=== PATIENT | female | born 1955 | race Caucasian/White ===

== ENCOUNTER → 2018-02-19 | Emergency (ER) | payer OTHER ==
[~2018-02-19] VITALS: Ht 167.6 cm; Wt 78.0 kg
[~2018-02-19] MED LIST: AMLO5TAB2 PO; METO-158 PO
[2018-02-19 03:16] VITALS: BP 167/75
[2018-02-19 04:28] LABS: Basophils # (auto) 0.1 uL; Basophils % (auto) 0.9 % (0.0-2.0); Eosinophils # (auto) 0 uL; Eosinophils % (auto) 0.1 % (0.0-7.0); Hematocrit 49.5 % (36.0-46.0); Hemoglobin 16.4 g/dL (12.2-16.2); Lymphocytes # (auto) 1.8 uL; Lymphocytes % (auto) 17.5 % (10.0-50.0); Mean Corpuscular Hemoglobin 30.5 pg (28.0-32.0); Mean Corpuscular Hgb Conc. 33.1 g/dL (32.0-36.0); Mean Corpuscular Volume 92.1 fL (80.0-100.0); Monocytes # (auto) 0.5 uL; Monocytes % (auto) 5.2 % (0.0-12.0); Neutrophils # (auto) 7.9 uL; Neutrophils % (auto) 76.3 % (37.0-80.0); Platelet Count (auto) 266 10^3/uL (140-450); Red Blood Cells 5.37 10^6/uL (4.0-5.20); Red Cell Distribution Width 14.9 % (11.8-14.3); White Blood Cell 10.4 10^3/uL (4.4-10.8)
[2018-02-19 04:47] LABS: Albumin 3.4 g/dL (3.4-5.0); Anion Gap 9 (5-15); BUN/Creatinine Ratio 22.2; Blood Urea Nitrogen 28 mg/dL (7-18); Calcium 8.3 mg/dL (8.5-10.1); Carbon Dioxide 26 mmol/L (21-32); Chloride 108 mmol/L (98-107); GFR African American 56 mL/min; GFR Non-African American 46 mL/min; Glucose 220 mg/dL (74-106); Magnesium 2.5 mg/dL (1.6-2.6); Potassium 3.9 mmol/L (3.5-5.1); Sodium 143 mmol/L (136-145)
[2018-02-19 05:04] LABS: Alanine Aminotransferase 65 U/L (13-56); Alkaline Phosphatase 129 U/L (45-117); Aspartate Aminotransferase 47 U/L (15-37); Bilirubin, Total 0.2 mg/dL (0.2-1.0); Total Protein 7.5 g/dL (6.4-8.2)
[2018-02-19 05:09] LABS: Urine Bacteria MOD /hpf (None Seen); Urine Blood TRACE /uL (Negative); Urine Mucus FEW (None Seen); Urine Specific Gravity 1.018 (1.001-1.035); Urine WBC 38 /hpf (0 - 5)
[2018-02-19 09:59] LABS: Alcohol, Urine < 3.0 mg/dL (0-5); Amphetamine Screen, Urine POSITIVE (NEGATIVE); Barbiturate Scree,Urine NEGATIVE (NEGATIVE); Benzodiazephine Screen, Urine NEGATIVE (NEGATIVE); Cannabinoid Screen, Urine NEGATIVE (NEGATIVE); Cocaine Screen, Urine NEGATIVE (NEGATIVE); Opiate Scree,Urine NEGATIVE (NEGATIVE); Phencyclidine Screen, Urine NEGATIVE (NEGATIVE)
== END | disposition left against medical advice (07) ==
LOC: ER 02:48
DX: R20.0 Anesthesia of skin (principal); Z53.21 Procedure and treatment not carried out due to patient leaving prior to being seen by health care provider
CPT/HCPCS: 36415; 71045; 80053; 80307; 81001; 83735; 83880; 84484; 85025; 93005

== ENCOUNTER 2019-11-17 15:46 | Inpatient (IN) | payer OTHER, MEDICAID ==
[~2019-11-17] VITALS: Ht 167.6 cm; Wt 97.3 kg
[~2019-11-17 15:46] MED LIST changes: +AMLO5TAB15 PO; -AMLO5TAB2 PO
[2019-11-17] MEDS ORDERED: IPRATROPIUM BROM 0.5 MG/2.5ML INH SOL HHN ONE (16:15)
[2019-11-17] MEDS ORDERED: methylPREDNISolone SOD SUCC 125 MG/2 ML VL IV ONE (16:15)
[2019-11-17] MEDS ORDERED: ALBUTEROL SULF 2.5 MG/0.5ML(0.5%) NEB SOLN HHN ONE (16:15)
[2019-11-17 17:25] LABS: Basophils # (auto) 0.1 10 ^3/uL (0-0.2); Basophils % (auto) 0.7 % (0.0-2.0); Eosinophils # (auto) 0.1 10 ^3/uL (0-0.8); Eosinophils % (auto) 0.6 % (0.0-7.0); Hematocrit 52.4 % (36.0-46.0); Hemoglobin 17.2 g/dL (12.2-16.2); Lymphocytes # (auto) 1.7 10 ^3/uL (0.4-5.4); Lymphocytes % (auto) 18.8 % (10.0-50.0); Mean Corpuscular Hemoglobin 30.8 pg (28.0-32.0); Mean Corpuscular Hgb Conc. 32.8 g/dL (32.0-36.0); Mean Corpuscular Volume 94.1 fL (80.0-100.0); Monocytes # (auto) 0.6 10 ^3/uL (0-1.3); Monocytes % (auto) 6.2 % (0.0-12.0); Neutrophils # (auto) 6.7 10 ^3/uL (1.6-8.6); Neutrophils % (auto) 73.7 % (37.0-80.0); Platelet Count (auto) 202 10^3/uL (140-450); Red Blood Cells 5.57 10^6/uL (4.0-5.20); Red Cell Distribution Width 14.7 % (11.8-14.3); White Blood Cell 9.1 10^3/uL (4.4-10.8)
[2019-11-17 17:30] LABS: Albumin 2.9 g/dL (3.4-5.0); Potassium 4.4 mmol/L (3.5-5.1)
[2019-11-17 17:34] LABS: BUN/Creatinine Ratio 14.3; Bilirubin, Total 0.3 mg/dL (0.2-1.0); Total Protein 6.8 g/dL (6.4-8.2)
[2019-11-17] MEDS ORDERED: TEMAZEPAM 15 MG CAP PO PRN (18:15)
[2019-11-17] MEDS ORDERED: ACETAMINOPHEN 500 MG TAB PO PRN (18:15)
[2019-11-17] MEDS ORDERED: LACTULOSE 20Gm/30ML SOLN PO PRN (18:15)
[2019-11-17] MEDS ORDERED: ALBUTEROL SULF 2.5 MG/0.5ML(0.5%) NEB SOLN NEB PRN (18:15)
[2019-11-17] MEDS ORDERED: NITROGLYCERIN 0.4 MG SL TAB SL PRN (18:15)
[2019-11-17] MEDS ORDERED: traMADol HCL 50 MG TAB PO PRN (18:15)
[2019-11-17] MEDS ORDERED: OSELTAMIVIR 75 MG CAP PO ONE (18:15)
[2019-11-17] MEDS ORDERED: MORPHINE SULF INJ 2 MG/ML SYRINGE 1ML IV PRN (18:15)
[2019-11-17] MEDS ORDERED: FUROSEMIDE 40 MG/4 ML VIAL IV ONE (19:45)
[2019-11-17] MEDS ORDERED: POTASSIUM EFFERVESENT TAB 25 MEQ PO ONE (19:45)
[2019-11-17] MEDS: methylPREDNISolone SOD SUCC 40 MG/ML VL IV SCH (19:47)
[2019-11-17 20:09] VITALS: BP 159/88
--- NOTE | 2019-11-17 20:15 | NUR ---
Telemetry admit from ER GILMANGIACOMO V admitted to Telemetry unit. Patient oriented to AUGUSTA THOMAS, RN primary RN, unit, room, bed, and unit policies regarding patient care and visiting hours. Patient now on continuous telemetry monitoring, tele box #52 and telemetry reading on arrival to unit is 106. Patient placed on bedside oxygen 3L via nasal cannula. Patient weighed by bedscale and encouraged to call if they need something. Explained plan of care to patient, patient verbalized understanding.
[2019-11-17] MEDS: DOXYCYCLINE 100MG/250ML 250 ML IV SCH (21:58)
[2019-11-17 22:00] VITALS: BP 159/88
[2019-11-17] MEDS: SODIUM CHLOR 0.9% PF (SALINE LOCK) 10ML VIAL/SYR IV SCH (22:00)
[2019-11-17] MEDS ORDERED: OSELTAMIVIR 30 MG CAP PO SCH (22:00)
[2019-11-17 22:01] VITALS: BP 150/96
[2019-11-17] MEDS: METOPROLOL TARTRATE 50 MG TAB PO SCH (22:01)
[2019-11-17 22:34] LABS: Urine Bacteria MOD /hpf (None Seen); Urine Blood Negative /uL (Negative); Urine Specific Gravity 1.008 (1.001-1.035); Urine WBC 6 /hpf (0 - 5)
[2019-11-18] MEDS: ALBUTEROL SULF 2.5 MG/0.5ML(0.5%) NEB SOLN NEB SCH ×4 (00:34→18:42)
[2019-11-18] MEDS: IPRATROPIUM BROM 0.5 MG/2.5ML INH SOL NEB SCH ×4 (00:34→18:43)
[2019-11-18] MEDS ORDERED: BECL80AE11 IN (01:22)
[2019-11-18 05:00] VITALS: BP 150/91
[2019-11-18] MEDS: DOXYCYCLINE 100MG/250ML 250 ML IV SCH ×2 (06:07→17:58)
[2019-11-18] MEDS: SODIUM CHLOR 0.9% PF (SALINE LOCK) 10ML VIAL/SYR IV SCH ×3 (06:07→22:00)
[2019-11-18] MEDS: methylPREDNISolone SOD SUCC 40 MG/ML VL IV SCH ×2 (06:07→17:58)
--- NOTE | 2019-11-18 08:00 | NUR ---
Opening Shift Note Assumed care of patient, awake, alert and oriented X4. No S/S of distress/SOB or pain. O2 @ 3 LPM via nasal cannula with sats @ 100%. Tele# 52, sinus rhythm @ 82 bpm. IV to left forearm, 20 gauge, patent and saline locked. Instructed on POC and to call for assist PRN, verbalized understanding. Bed locked, in lowest position, call light within reach, will continue to monitor for changes Q1hr and PRN.
[2019-11-18 09:00] VITALS: BP 111/62
[2019-11-18] MEDS: NITROGLYCERIN 0.2MG/HR TOPICAL PATCH TD SCH (10:00)
--- NOTE | 2019-11-18 10:50 | NUR ---
CARDIOLOGY Dr Taylor at bedside for Cardiology consult, no new orders at this time. Patient updated on plan of care, verbalized understanding.
[2019-11-18] MEDS: FUROSEMIDE 40 MG/4 ML VIAL IV SCH (10:51)
[2019-11-18] MEDS: amLODIPine BESYLATE 5 MG TAB PO SCH (10:53)
[2019-11-18] MEDS: POTASSIUM CHL 20 Meq TABLET PO SCH (10:53)
[2019-11-18] MEDS: METOPROLOL TARTRATE 50 MG TAB PO SCH ×2 (10:54→22:00)
[2019-11-18] MEDS: ENALAPRIL MALEATE 2.5 MG TAB PO SCH (10:55)
[2019-11-18] MEDS: ENOXAPARIN SOD 40 MG/0.4 ML SYRINGE SC SCH (10:58)
--- NOTE | 2019-11-18 11:11 | NUR ---
GIACOMO GILMAN V states they want to leave the floor Against Medical Advice (AMA) to go outside and smoke. Patient encouraged to stay on floor and not smoke. Patient advised of the risks and benefits of leaving AMA. Patient verbalized understanding and signed required AMA form.
[2019-11-18] MEDS ORDERED: metOLazone 5 MG TAB PO ONE (12:15)
--- NOTE | 2019-11-18 12:15 | NUR ---
WOUND CARE NOTE: WOUND CONSULT ORDERED FOR PATIENT WITH SKIN INTEGRITY ISSUES. WOUND PHOTOS TAKEN UPON ADMIT BY BEDSIDE NURSE FOR REFERENCE. PATIENT ADMITTED TO [facility], [facility] WITH DIAGNOSIS OF ASTHMA EXACERBATION, HEART FAILURE. CURRENT HERNESTO SCORE IS 21. PATIENT IS FULLY AMBULATORY. PATIENT HAS NO OPEN WOUNDS. SHE HAS INTACT CALLOUS TO LEFT # 1 DIGIT/THUMB, FISSURED CALLOUS TO THE RIGHT HEEL, INTACT HEALED ABRASIONS TO THE RIGHT BUTTOCK. NO OPEN OR DRAINING WOUNDS NOTED. NO NEED FOR DRESSINGS TO THESE WOUNDS. SHE MAY BENEFIT FROM BID APPLICATIONS WITH HYDROGUARD BARRIER CREAM TO RIGHT HEEL FISSURES, SKIN/WOUND CARE PLAN. NO FURTHER WOUND CARE MONITORING NEEDED AT THIS TIME.
--- NOTE | 2019-11-18 12:25 | NUR ---
ROUNDS Dr Najera at bedside for rounds, new orders received and followed through. Patient updated on plan of care, verbalized understanding.
[2019-11-18 13:00] VITALS: BP 156/101
[2019-11-18 16:41] VITALS: BP 128/63
--- NOTE | 2019-11-18 19:11 | NUR ---
Care endorsed to DANUTA Koch, night nurse. Signed: 11/18/19 at 1911 by ELVIS FAITH <Co-Signature Required> Co-Signed: 11/18/19 at 1911 by Oly Trivedi RN
--- NOTE | 2019-11-18 20:05 | NUR ---
open note assumed care of pt. upon entering room pt awake, alert and oriented x4. pt on room air no distress noted or expressed. pt denied any pain. pt updated on plan of care, no questions at this time. pt bed locked, low and 2x rails up. call light in reach, this nurse encouraged pt to call as needed. this nurse to round q1hr and prn.
[2019-11-18 22:00] VITALS: BP 156/77
[2019-11-19] MEDS: IPRATROPIUM BROM 0.5 MG/2.5ML INH SOL NEB SCH ×4 (00:31→19:34)
[2019-11-19] MEDS: ALBUTEROL SULF 2.5 MG/0.5ML(0.5%) NEB SOLN NEB SCH ×4 (00:32→19:34)
[2019-11-19 05:40] VITALS: BP 128/77
[2019-11-19 05:55] LABS: Potassium 4.4 mmol/L (3.5-5.1)
[2019-11-19 06:03] LABS: BUN/Creatinine Ratio 25.6; Calcium 8.5 mg/dL (8.5-10.1)
[2019-11-19] MEDS: SODIUM CHLOR 0.9% PF (SALINE LOCK) 10ML VIAL/SYR IV SCH ×3 (06:05→21:48)
[2019-11-19] MEDS: methylPREDNISolone SOD SUCC 40 MG/ML VL IV SCH ×2 (06:05→18:03)
[2019-11-19] MEDS: DOXYCYCLINE 100MG/250ML 250 ML IV SCH ×2 (06:05→18:03)
--- NOTE | 2019-11-19 08:00 | NUR ---
Opening Shift Note Assumed care of patient, awake, alert and oriented X4. No S/S of distress/SOB or pain. O2 @ 2 LPM via nasal cannula with sats @ 100%. Tele# 52, sinus rhythm @ 84 bpm. IV to right forearm, 20 gauge, patent and saline locked. Instructed on POC and to call for assist PRN, verbalized understanding. Bed locked, in lowest position, call light within reach, will continue to monitor for changes Q1hr and PRN.
[2019-11-19] MEDS ORDERED: metOLazone 5 MG TAB PO ONE (08:15)
[2019-11-19 09:00] VITALS: BP 121/78
[2019-11-19] MEDS: NITROGLYCERIN 0.2MG/HR TOPICAL PATCH TD SCH (10:00)
[2019-11-19] MEDS: FUROSEMIDE 40 MG/4 ML VIAL IV SCH (10:54)
[2019-11-19] MEDS: POTASSIUM CHL 20 Meq TABLET PO SCH (10:55)
[2019-11-19] MEDS: METOPROLOL TARTRATE 50 MG TAB PO SCH ×2 (10:56→21:49)
[2019-11-19] MEDS: amLODIPine BESYLATE 5 MG TAB PO SCH (10:57)
[2019-11-19] MEDS: ENALAPRIL MALEATE 2.5 MG TAB PO SCH (10:58)
[2019-11-19] MEDS: ENOXAPARIN SOD 40 MG/0.4 ML SYRINGE SC SCH (10:58)
--- NOTE | 2019-11-19 11:20 | NUR ---
ROUNDS Dr Najera at bedside for rounds, new orders received and followed through. Patient updated on plan of care, verbalized understanding.
[2019-11-19 13:00] VITALS: BP 145/89
--- NOTE | 2019-11-19 13:13 | NUR ---
Respiratory note: BREATHING TX AT 1200 NOT GIVEN. NO THERAPIST AVAILABLE. PT TRIAGED. BREATH SOUNDS DIMINISHED. PT ON 3 LPM SP02 95%.
[2019-11-19 16:09] VITALS: BP 127/66
--- NOTE | 2019-11-19 19:00 | NUR ---
Care endorsed to DANUTA Koch, night nurse.
--- NOTE | 2019-11-19 21:18 | NUR ---
open note assumed care of pt, upon entering room pt awake, alert and oriented x4. pt on 2L nc no distress noted or expressed. pt denies any pain at this time. pt updated on plan of care and does have some questions about cardiac procedure to be done tomorrow regarding shift lab technician, pt stated "yeah i know im supposed to have a procedure tomorrow, but id like the doctor to explain it to me first", this nurse will endorse that to day shift RN. pt is aware of NPO status after midnight. pt bed locked, low and 2x rails up. pt call light in reach, this nurse to round q1hr and prn.
[2019-11-19 22:00] VITALS: BP 160/92
[2019-11-20] MEDS: ALBUTEROL SULF 2.5 MG/0.5ML(0.5%) NEB SOLN NEB SCH ×4 (00:27→19:13)
[2019-11-20] MEDS: IPRATROPIUM BROM 0.5 MG/2.5ML INH SOL NEB SCH ×4 (00:27→19:13)
[2019-11-20 05:57] LABS: Basophils # (auto) 0 10 ^3/uL (0-0.2); Basophils % (auto) 0.1 % (0.0-2.0); Eosinophils # (auto) 0 10 ^3/uL (0-0.8); Hematocrit 51.6 % (36.0-46.0); Lymphocytes # (auto) 0.7 10 ^3/uL (0.4-5.4); Lymphocytes % (auto) 4.6 % (10.0-50.0); Mean Corpuscular Hemoglobin 30.7 pg (28.0-32.0); Mean Corpuscular Hgb Conc. 32.9 g/dL (32.0-36.0); Monocytes # (auto) 0.5 10 ^3/uL (0-1.3); Monocytes % (auto) 3.4 % (0.0-12.0); Neutrophils # (auto) 14.7 10 ^3/uL (1.6-8.6); Neutrophils % (auto) 91.9 % (37.0-80.0); Nucleated Red Blood Cells % 0.1 %; Platelet Count (auto) 204 10^3/uL (140-450); Red Blood Cells 5.54 10^6/uL (4.0-5.20); Red Cell Distribution Width 14.3 % (11.8-14.3)
[2019-11-20 06:00] VITALS: BP 122/73
[2019-11-20] MEDS: methylPREDNISolone SOD SUCC 40 MG/ML VL IV SCH ×2 (06:01→18:29)
[2019-11-20] MEDS: SODIUM CHLOR 0.9% PF (SALINE LOCK) 10ML VIAL/SYR IV SCH ×3 (06:01→21:31)
[2019-11-20] MEDS: DOXYCYCLINE 100MG/250ML 250 ML IV SCH ×2 (06:02→18:29)
[2019-11-20 06:12] LABS: Calcium 8.7 mg/dL (8.5-10.1); Potassium 4.3 mmol/L (3.5-5.1)
[2019-11-20 06:16] LABS: BUN/Creatinine Ratio 33.3
[2019-11-20] MEDS ORDERED: LIDOCAINE 2%HCL (LOCAL ANESTH.) INJ 20ML MDV ONE (07:23)
[2019-11-20] MEDS ORDERED: IODIXANOL 320MG/ML 100ML BTL IV ONE ×2 (07:23→10:01)
--- NOTE | 2019-11-20 07:30 | NUR ---
Opening Shift Note RECEIVED REPORT FROM NOC RN. Assumed care of patient, awake and alert. PATIENT ON OXYGEN AT 2 LPM VIA NASAL CANNULA WITH no S/S of distress/SOB or pain. BED IN LOWEST, LOCKED POSITION WITH SIDERAILS UP x2 AND CALL LIGHT WITHIN REACH. Instructed on POC and to call for assist PRN, will continue to monitor for changes Q1hr and PRN.
--- NOTE | 2019-11-20 07:45 | NUR ---
PATIENT TAKEN TO ADVERTISER FOR PROCEDURE.
[2019-11-20] MEDS ORDERED: ANGIOMAX 250 MG VIAL IV ONE (09:20)
[2019-11-20] MEDS ORDERED: fentaNYL CITRATE 100 MCG/2 ML VL ONE (09:20)
[2019-11-20] MEDS ORDERED: SODIUM CHL 0.9% 50 ML ONE (09:20)
[2019-11-20] MEDS ORDERED: MIDAZOLAM HCL 1MG/1ML-2 ML VIAL ONE (09:20)
[2019-11-20] MEDS: ENOXAPARIN SOD 40 MG/0.4 ML SYRINGE SC SCH (10:00)
[2019-11-20] MEDS: POTASSIUM CHL 20 Meq TABLET PO SCH (10:00)
[2019-11-20] MEDS: ENALAPRIL MALEATE 2.5 MG TAB PO SCH (10:00)
[2019-11-20] MEDS: METOPROLOL TARTRATE 50 MG TAB PO SCH ×2 (10:00→21:31)
[2019-11-20] MEDS: amLODIPine BESYLATE 5 MG TAB PO SCH (10:00)
[2019-11-20] MEDS: NITROGLYCERIN 0.2MG/HR TOPICAL PATCH TD SCH (10:00)
[2019-11-20] MEDS: FUROSEMIDE 40 MG/4 ML VIAL IV SCH (10:00)
--- NOTE | 2019-11-20 11:10 | NUR ---
Respiratory note: SCHEDULE [place] TX NOT GIVEN AT THIS TIME. PT IS AT A PROCEDURE.
[2019-11-20 13:13] VITALS: BP 125/78
--- NOTE | 2019-11-20 13:47 | NUR ---
Social Service Consult regarding Advance Directives. Attempted to provide pt with information on Advance Directives. Pt stopped Internet Sales Manager and stated he was not interested.
[2019-11-20 16:48] VITALS: BP 125/73
--- NOTE | 2019-11-20 20:05 | NUR ---
Opening Shift Note Assumed care of patient, sleeping at this time. No S/S of distress/SOB or pain. Noted left groin dressing with minimal blood on it, hematoma on the same site, soft to hard surrounding tissue. Per patient, she went down AMA to smoke around 5pm. Instructed to stay on bed for now and avoid frequent walking. Provided bedside commode. Marked hematoma and the bleeding on dressing site. Applied pressure for 10-15 minutes, will rosana CASSIDY. Will continue to monitor for changes Q1hr and PRN.
[2019-11-20 21:57] VITALS: BP 125/73
[2019-11-20 22:00] VITALS: BP 127/65
--- NOTE | 2019-11-20 22:25 | NUR ---
MELL Toure and Timothy Savage made aware of patient's status and situation
--- NOTE | 2019-11-20 23:30 | NUR ---
Paged Dr. Taylor and left a message, awaiting call back
[2019-11-21] MEDS: ALBUTEROL SULF 2.5 MG/0.5ML(0.5%) NEB SOLN NEB SCH ×4 (00:36→19:59)
[2019-11-21] MEDS: IPRATROPIUM BROM 0.5 MG/2.5ML INH SOL NEB SCH ×4 (00:36→19:59)
--- NOTE | 2019-11-21 00:42 | NUR ---
Spoke to Dr. Taylor and updated on patient's status. New orders received at this time to put pressure on left groin for 20 minutes and labs ordered as well. Addendum: 11/21/19 at 0158 by Drea Espinoza RN RN Dressing to left groin changed as ordered
--- NOTE | 2019-11-21 00:43 | NUR ---
Spoke to Dr. Taylor and updated on patient's status. New orders received at this time to put pressure on left groin for 20 minutes and labs ordered as well. Dressing to left groin changed as ordered too
[2019-11-21 01:23] LABS: Basophils # (auto) 0.1 10 ^3/uL (0-0.2); Basophils % (auto) 0.4 % (0.0-2.0); Eosinophils # (auto) 0 10 ^3/uL (0-0.8); Eosinophils % (auto) 0.1 % (0.0-7.0); Hematocrit 49.3 % (36.0-46.0); Hemoglobin 16.1 g/dL (12.2-16.2); Lymphocytes # (auto) 0.5 10 ^3/uL (0.4-5.4); Lymphocytes % (auto) 3.6 % (10.0-50.0); Mean Corpuscular Hemoglobin 30.4 pg (28.0-32.0); Mean Corpuscular Hgb Conc. 32.7 g/dL (32.0-36.0); Mean Corpuscular Volume 92.8 fL (80.0-100.0); Monocytes # (auto) 0.4 10 ^3/uL (0-1.3); Monocytes % (auto) 2.9 % (0.0-12.0); Neutrophils # (auto) 12.7 10 ^3/uL (1.6-8.6); Platelet Count (auto) 202 10^3/uL (140-450); Red Blood Cells 5.31 10^6/uL (4.0-5.20); Red Cell Distribution Width 14.3 % (11.8-14.3); White Blood Cell 13.6 10^3/uL (4.4-10.8)
[2019-11-21 01:43] LABS: BUN/Creatinine Ratio 34.1; Calcium 8.8 mg/dL (8.5-10.1); Potassium 4.1 mmol/L (3.5-5.1)
--- NOTE | 2019-11-21 01:46 | NUR ---
Updated Dr. Taylor on latest Lab results, no new orders at this time. Will continue to monitor
[2019-11-21 05:37] VITALS: BP 142/85
[2019-11-21] MEDS: SODIUM CHLOR 0.9% PF (SALINE LOCK) 10ML VIAL/SYR IV SCH ×2 (06:09→13:49)
[2019-11-21] MEDS: DOXYCYCLINE 100MG/250ML 250 ML IV SCH (06:10)
[2019-11-21] MEDS: methylPREDNISolone SOD SUCC 40 MG/ML VL IV SCH (06:10)
--- NOTE | 2019-11-21 07:37 | NUR ---
Patient in bed resting assessed left groin hematoma. hematoma soft no signs of bleeding.
[2019-11-21 09:00] VITALS: BP 116/77
[2019-11-21] MEDS: ENOXAPARIN SOD 40 MG/0.4 ML SYRINGE SC SCH (10:00)
[2019-11-21] MEDS: NITROGLYCERIN 0.2MG/HR TOPICAL PATCH TD SCH (10:00)
[2019-11-21] MEDS: FUROSEMIDE 40 MG/4 ML VIAL IV SCH (10:24)
[2019-11-21] MEDS: ASPirin 81 mg TAB PO SCH (10:25)
[2019-11-21] MEDS: POTASSIUM CHL 20 Meq TABLET PO SCH (10:26)
[2019-11-21] MEDS: METOPROLOL TARTRATE 50 MG TAB PO SCH ×2 (10:26→21:58)
[2019-11-21] MEDS: ENALAPRIL MALEATE 2.5 MG TAB PO SCH (10:27)
[2019-11-21] MEDS: CLOPIDOGREL BISULFATE 75 MG TAB PO SCH (10:27)
[2019-11-21] MEDS: amLODIPine BESYLATE 5 MG TAB PO SCH (10:27)
[2019-11-21 13:00] VITALS: BP 98/55
[2019-11-21] MEDS ORDERED: predniSONE 20 MG TAB PO ONE (14:00)
[2019-11-21 17:00] VITALS: BP 111/64
--- NOTE | 2019-11-21 19:20 | NUR ---
Opening Shift Note Assumed care of patient, awake, alert and oriented X 4. Patient is resting comfortably with no S/S of distress/SOB or pain. Patient connected to telemetry box # 52 with HR 59 bpm. Bed is low, locked, two side rails raised, and call ramires is within reach. Instructed on POC and to call for assist PRN, will continue to monitor for changes Q1hr and PRN.
[2019-11-21 20:00] VITALS: BP 109/56
[2019-11-21] MEDS: DOXYCYCLINE 100 MG TAB/CAP PO SCH (21:57)
[2019-11-21 22:00] VITALS: BP 109/56
[2019-11-22] VITALS (7 sets, daily range): BP systolic 108–133; BP diastolic 55–75
[2019-11-22] MEDS: ALBUTEROL SULF 2.5 MG/0.5ML(0.5%) NEB SOLN NEB SCH ×4 (00:23→18:32)
[2019-11-22] MEDS: IPRATROPIUM BROM 0.5 MG/2.5ML INH SOL NEB SCH ×4 (00:23→18:32)
[2019-11-22] MEDS: SODIUM CHLOR 0.9% PF (SALINE LOCK) 10ML VIAL/SYR IV SCH ×4 (01:49→21:51)
--- NOTE | 2019-11-22 07:20 | NUR ---
Opening Shift Note Assumed care of patient, awake, alert and oriented X 4. Patient. Patient appears comfortable in bed, no s/s of distress, denies SOB and pain at this time. Bed in low and locked position, two side rails raised, and call light is within reach. Plan of care discussed and advised to call for assist PRN, will continue to monitor for changes Q1hr and PRN.
[2019-11-22 07:49] LABS: BUN/Creatinine Ratio 38.6; Calcium 8.7 mg/dL (8.5-10.1); Potassium 3.9 mmol/L (3.5-5.1)
--- NOTE | 2019-11-22 08:00 | NUR ---
PRE/POST SPIROMETRY WITH BRONCHODILATOR DONE AND PLACED IN PT'S CHART.
[2019-11-22] MEDS: ENOXAPARIN SOD 40 MG/0.4 ML SYRINGE SC SCH (10:27)
[2019-11-22] MEDS: NITROGLYCERIN 0.2MG/HR TOPICAL PATCH TD SCH (10:30)
[2019-11-22] MEDS: DOXYCYCLINE 100 MG TAB/CAP PO SCH ×2 (10:31→21:50)
[2019-11-22] MEDS: POTASSIUM CHL 20 Meq TABLET PO SCH (10:32)
[2019-11-22] MEDS: amLODIPine BESYLATE 5 MG TAB PO SCH (10:33)
[2019-11-22] MEDS: predniSONE 20 MG TAB PO SCH (10:35)
[2019-11-22] MEDS: CLOPIDOGREL BISULFATE 75 MG TAB PO SCH (10:35)
[2019-11-22] MEDS: METOPROLOL TARTRATE 50 MG TAB PO SCH ×2 (10:36→21:51)
[2019-11-22] MEDS: ASPirin 81 mg TAB PO SCH (10:37)
[2019-11-22] MEDS: ENALAPRIL MALEATE 2.5 MG TAB PO SCH (11:01)
[2019-11-22] MEDS: FUROSEMIDE 100 MG/10ML VIAL IV SCH (11:02)
--- NOTE | 2019-11-22 13:38 | NUR ---
HOME OXYGEN DELIVERED TO PATIENT IN ROOM. PATIENT EDUCATED ON USE OF EQUIPMENT UPON DISCHARGE. PATIENT VERBALIZED UNDERSTANDING.
--- NOTE | 2019-11-22 14:55 | NUR ---
assessment Patient is a 64 year old female who is alert and oriented. Patients cognitive abilities are intact. Prior to admission patient lived home with her Ivan and functioned independently. Patient informed me she is able to care for her own ADLs. Per patient she will return home to her prior living arrangements post discharge and Ivan will transport her home. Patient has been informed of her consult for home 02. Patient informed me she had oxygen in the past, but did not need to continue to use it and it was sent back. Patient informed me she does not have a PCP. Patient feels safe returning home on discharge. I informed patient she has a right to speak to a social worker aide regarding all care. I informed patient she has a right to participate in any and all discharge planning. Patient does not have a POA and advanced directive. I have offered patient information on POA and advanced directives. I informed the patient the advantages and benefits of having an Advanced Directive. Patient verbalized understanding and agreed to discharge plan. Addendum: 11/22/19 at 1459 by Suzanne ROCA Amended: Links added.
--- NOTE | 2019-11-22 15:12 | NUR ---
D/C Planning Per SS consult for home oxygen at 3 l/min continuously to keep SAT 92. Order was faxed to [facility]. Per Shraddha with [facility] portable oxygen was deliver to bedside at 13:30.
--- NOTE | 2019-11-22 19:29 | NUR ---
Opening Shift Note Assumed care of patient, awake and alert x 4. No S/S of distress/SOB. Bed is in lowest position and locked. Call light within reach. Board updated. Tele box number matches monitor and leads are in correct placement. Instructed on POC and to call for assist PRN, will continue to monitor for changes Q1hr and PRN.
[2019-11-23] MEDS: ALBUTEROL SULF 2.5 MG/0.5ML(0.5%) NEB SOLN NEB SCH ×3 (00:28→11:22)
[2019-11-23] MEDS: IPRATROPIUM BROM 0.5 MG/2.5ML INH SOL NEB SCH ×3 (00:29→11:22)
[2019-11-23 05:00] VITALS: BP 114/64
[2019-11-23] MEDS: SODIUM CHLOR 0.9% PF (SALINE LOCK) 10ML VIAL/SYR IV SCH (06:34)
[2019-11-23 07:24] VITALS: BP 114/64
--- NOTE | 2019-11-23 07:25 | NUR ---
OPENING SHIFT NOTE Assumed care patient currently sleeping, no signs or symptoms of distress/sob/pain noted. Patient currently on 2L O2 via NC. Bed in low position, locked, and call light within reach. Will continue care.
[2019-11-23 09:00] VITALS: BP 107/65
[2019-11-23] MEDS: CLOPIDOGREL BISULFATE 75 MG TAB PO SCH (09:38)
[2019-11-23] MEDS: FUROSEMIDE 100 MG/10ML VIAL IV SCH (09:38)
[2019-11-23] MEDS: ENOXAPARIN SOD 40 MG/0.4 ML SYRINGE SC SCH (09:39)
[2019-11-23] MEDS: NITROGLYCERIN 0.2MG/HR TOPICAL PATCH TD SCH (09:39)
[2019-11-23] MEDS: DOXYCYCLINE 100 MG TAB/CAP PO SCH (09:39)
[2019-11-23] MEDS: ENALAPRIL MALEATE 2.5 MG TAB PO SCH (09:40)
[2019-11-23] MEDS: POTASSIUM CHL 20 Meq TABLET PO SCH (09:40)
[2019-11-23] MEDS: ASPirin 81 mg TAB PO SCH (09:40)
[2019-11-23] MEDS: METOPROLOL TARTRATE 50 MG TAB PO SCH (09:41)
[2019-11-23] MEDS: amLODIPine BESYLATE 5 MG TAB PO SCH (09:41)
[2019-11-23] MEDS: predniSONE 20 MG TAB PO SCH (09:42)
[2019-11-23 13:00] VITALS: BP 97/41
[2019-11-23 13:29] VITALS: BP 99/45
[2019-11-23 14:15] VITALS: BP 99/45
--- NOTE | 2019-11-23 16:30 | NUR ---
Discharge instructions given as ordered. Encourage to follow up with PMD as instructed. All questions and concerns addressed. Patient verbalized understanding. IV removed with catheter intact, pressure dressing applied. Telemetry unit returned to ICU. Patient taken to vehicle via wheelchair with all personal belongings, and home O2 tank. Patient accompanied by staff. No distress noted at time of departure.
== END 2019-11-23 16:30 | disposition home or self-care (01) | DRG 252 ==
LOC: ER 15:46 → TELE 15:47 → TELE-WESTW 20:47
PROVIDERS: ADMIT Internal Medicine; ATTEND Internal Medicine Nephrology
PROC: 047K3ZZ Dilation of Right Femoral Artery, Percutaneous Approach (ICD-10-PCS; principal; 2019-11-17)
PROC: B41G1ZZ Fluoroscopy of Left Lower Extremity Arteries using Low Osmolar Contrast (ICD-10-PCS; 2019-11-17)
PROC: B41F1ZZ Fluoroscopy of Right Lower Extremity Arteries using Low Osmolar Contrast (ICD-10-PCS; 2019-11-17)
DX: I21.4 Non-ST elevation (NSTEMI) myocardial infarction (principal); N17.0 Acute kidney failure with tubular necrosis; I50.43 Acute on chronic combined systolic (congestive) and diastolic (congestive) heart failure; J96.21 Acute and chronic respiratory failure with hypoxia; I13.0 Hypertensive heart and chronic kidney disease with heart failure and stage 1 through stage 4 chronic kidney disease, or unspecified chronic kidney disease; J44.1 Chronic obstructive pulmonary disease with (acute) exacerbation; J45.901 Unspecified asthma with (acute) exacerbation; J98.11 Atelectasis; I73.9 Peripheral vascular disease, unspecified; F17.210 Nicotine dependence, cigarettes, uncomplicated; Z91.19 Patient's noncompliance with other medical treatment and regimen; E66.3 Overweight; N18.3 Chronic kidney disease, stage 3 (moderate); Z79.02 Long term (current) use of antithrombotics/antiplatelets; Z79.82 Long term (current) use of aspirin; Z80.0 Family history of malignant neoplasm of digestive organs; Z87.442 Personal history of urinary calculi; Z82.49 Family history of ischemic heart disease and other diseases of the circulatory system; Z90.49 Acquired absence of other specified parts of digestive tract; Z68.34 Body mass index [BMI] 34.0-34.9, adult; Z71.6 Tobacco abuse counseling; Z88.5 Allergy status to narcotic agent
CPT/HCPCS: 36415; 36600; 71045; 71250; 80048; 80053; 80061; 81001; 82550; 82805; 83036; 83605; 83880; 84484; 85025; 86850; 86900; 86901; 87040; 87070; 87205; 87804; 93005; 93306; 93926; 94060; 94640; 94644; 96374; 99152; 99153; 99291; G0378; G9035; J2250; J3490; Q9967

== ENCOUNTER 2023-05-07 15:22 | Inpatient (IN) | payer MEDICARE, MEDICAID ==
[~2023-05-07] VITALS: Ht 167.6 cm; Wt 73.2 kg
[~2023-05-07 15:22] MED LIST changes: +AMLO1TAB22 PO; -AMLO5TAB15 PO; +BECL80AE11 IN
[2023-05-07] MEDS ORDERED: ALBUTEROL SULF 2.5 MG/0.5ML(0.5%) NEB SOLN NEB ONE (15:45)
[2023-05-07] MEDS ORDERED: IPRATROPIUM BROM 0.5 MG/2.5ML INH SOL NEB ONE (15:45)
[2023-05-07 15:50] VITALS: PULSE 90; RESP 18; O2SAT 95
[2023-05-07 16:34] LABS: Basophils # (auto) 0.1 10 ^3/uL (0-0.2); Basophils % (auto) 0.8 % (0.0-2.0); Eosinophils # (auto) 0.2 10 ^3/uL (0-0.8); Eosinophils % (auto) 1.6 % (0.0-7.0); Hemoglobin 16.3 g/dL (12.2-16.2); Lymphocytes # (auto) 1.6 10 ^3/uL (0.4-5.4); Lymphocytes % (auto) 15.2 % (10.0-50.0); Mean Corpuscular Hemoglobin 30.9 pg (28.0-32.0); Mean Corpuscular Hgb Conc. 32.6 g/dL (32.0-36.0); Mean Corpuscular Volume 94.8 fL (80.0-100.0); Monocytes # (auto) 0.6 10 ^3/uL (0-1.3); Monocytes % (auto) 5.4 % (0.0-12.0); Neutrophils # (auto) 8.2 10 ^3/uL (1.6-8.6); Nucleated Red Blood Cells % 0.2 %; Red Blood Cells 5.27 10^6/uL (4.0-5.20); White Blood Cell 10.7 10^3/uL (4.4-10.8)
[2023-05-07] MEDS ORDERED: NITROGLYCERIN 2% OINT 1GM PKG TD STA (16:44)
[2023-05-07] MEDS ORDERED: IPRATROPIUM BROM 0.5 MG/2.5ML INH SOL HHN ONE (16:45)
[2023-05-07] MEDS ORDERED: methylPREDNISolone SOD SUCC 40 MG/ML VL IV ONE (16:45)
[2023-05-07] MEDS ORDERED: PANTOPRAZOLE 40 MG/10 ML VIAL INJ IV ONE (16:45)
[2023-05-07] MEDS ORDERED: cefTRIAXone 1GM/50ML D5W 50 ML IV ONE (16:45)
[2023-05-07] MEDS ORDERED: ASPirin 81 mg TAB PO ONE (16:45)
[2023-05-07] MEDS ORDERED: ALBUTEROL SULF 2.5 MG/0.5ML(0.5%) NEB SOLN HHN ONE (16:45)
[2023-05-07] MEDS ORDERED: ACETAMINOPHEN 325 MG TAB PO ONE ×2 (16:45)
[2023-05-07] MEDS ORDERED: NITROGLYCERIN 0.2MG/HR TOPICAL PATCH TD ONE (16:45)
[2023-05-07] MEDS ORDERED: FUROSEMIDE 40 MG/4 ML VIAL IV ONE (16:45)
[2023-05-07 17:00] LABS: Alanine Aminotransferase 24 U/L (7-40); Albumin 4.2 g/dL (3.2-4.8); Alkaline Phosphatase 96 U/L (46-116); Anion Gap 4.5 (5-15); Aspartate Aminotransferase 20 U/L (13-40); BUN/Creatinine Ratio 11.2 (10.0-20.0); Bilirubin, Total 0.3 mg/dL (0.2-1.0); Blood Urea Nitrogen 11 mg/dL (9-23); Calcium 9.5 mg/dL (8.5-10.1); Carbon Dioxide 32.5 mmol/L (20-30); Chloride 103 mmol/L (98-107); Glucose 124 mg/dL (74-106); Potassium 4.3 mmol/L (3.5-5.1); Sodium 140 mmol/L (136-145); Total Protein 7.1 g/dL (5.7-8.2)
[2023-05-07] MEDS ORDERED: LORazepam 2MG/ML-1ML VIAL IV ONE (17:00)
[2023-05-07 17:19] LABS: INR 0.91 (0.9-1.15); Partial Thromboplastin Time 28.1 SEC (24.5-34.5); Prothrombin Time 9.6 sec (9.3-11.8)
[2023-05-07 17:30] LABS: Base Excess 5.3 mmol/L (-2.0-2.0)
[2023-05-07] MEDS ORDERED: VANCOMYCIN 1GM/250ML 250 ML IV ONE (17:30)
[2023-05-07] MEDS ORDERED: AZITHROMYCIN 500MG/ 250ML 250 ML IV ONE (17:30)
[2023-05-07] MEDS: ONDANSETRON HCL 4 MG/2 ML VIAL IV ONE ×2 (17:53→18:23)
[2023-05-07 19:20] VITALS: PULSE 95; RESP 16; O2SAT 94
[2023-05-07] MEDS ORDERED: ALBUTEROL SULF 2.5 MG/0.5ML(0.5%) NEB SOLN NEB PRN (21:30)
[2023-05-07] MEDS ORDERED: ONDANSETRON HCL 4 MG/2 ML VIAL IV PRN (21:30)
[2023-05-07] MEDS ORDERED: NITROGLYCERIN 0.4 MG SL TAB SL PRN (21:30)
[2023-05-07] MEDS ORDERED: ACETAMINOPHEN 325 MG TAB PO PRN (21:30)
[2023-05-07] MEDS ORDERED: DOCUSATE SOD 100 MG CAP PO PRN (21:30)
[2023-05-07] MEDS ORDERED: MORPHINE SULFATE INJ 2 MG/ml SYRG IV PRN (21:30)
[2023-05-07] MEDS ORDERED: HYDROcodone-ACET 5/325MG TAB PO PRN (21:30)
[2023-05-07] MEDS ORDERED: IPRATROPIUM BROM 0.5 MG/2.5ML INH SOL NEB PRN (21:30)
[2023-05-07 21:45] VITALS: PULSE 85; RESP 20; O2SAT 95
[2023-05-07 21:50] LABS: Urine Bacteria FEW /hpf (None Seen); Urine Blood Negative /uL (Negative); Urine Clarity HAZY (Clear); Urine Color Yellow (Yellow); Urine Protein, UAD 2+ (Negative); Urine Urobilinogen Normal (Negative); Urine WBC 19 /hpf (0 - 5)
[2023-05-07] MEDS: SODIUM CHLOR 0.9% PF (SALINE LOCK) 10ML VIAL/SYR IV SCH (22:32)
[2023-05-07] MEDS: METOPROLOL TARTRATE 50 MG TAB PO SCH (22:32)
[2023-05-07] MEDS: methylPREDNISolone SOD SUCC 40 MG/ML VL IV SCH (22:32)
[2023-05-08] VITALS (19 sets, daily range): BP systolic 136–180; BP diastolic 64–82; PULSE 66–107; RESP 13–27; TEMP 98.4; O2SAT 88–99
[2023-05-08] MEDS ORDERED: ALBUTEROL SULF 2.5 MG/0.5ML(0.5%) NEB SOLN ONE (00:37)
[2023-05-08] MEDS ORDERED: ALBUTEROL SULF 2.5 MG/0.5ML(0.5%) NEB SOLN NEB ONE (00:45)
[2023-05-08] MEDS: IPRATROPIUM BROM 0.5 MG/2.5ML INH SOL NEB SCH ×6 (02:51→22:13)
[2023-05-08] MEDS: ALBUTEROL SULF 2.5 MG/0.5ML(0.5%) NEB SOLN NEB SCH ×6 (02:51→22:12)
[2023-05-08] MEDS: SODIUM CHLOR 0.9% PF (SALINE LOCK) 10ML VIAL/SYR IV SCH ×3 (06:07→22:06)
[2023-05-08 06:10] LABS: Basophils # (auto) 0 10 ^3/uL (0-0.2); Basophils % (auto) 0.2 % (0.0-2.0); Eosinophils # (auto) 0 10 ^3/uL (0-0.8); Hematocrit 46.6 % (36.0-46.0); Hemoglobin 15.4 g/dL (12.2-16.2); Lymphocytes # (auto) 0.5 10 ^3/uL (0.4-5.4); Lymphocytes % (auto) 6.1 % (10.0-50.0); Mean Corpuscular Hemoglobin 31.2 pg (28.0-32.0); Mean Corpuscular Volume 94.4 fL (80.0-100.0); Monocytes # (auto) 0 10 ^3/uL (0-1.3); Monocytes % (auto) 0.6 % (0.0-12.0); Neutrophils # (auto) 7.2 10 ^3/uL (1.6-8.6); Neutrophils % (auto) 93.1 % (37.0-80.0); Red Blood Cells 4.94 10^6/uL (4.0-5.20); Red Cell Distribution Width 13.8 % (11.8-14.3); White Blood Cell 7.7 10^3/uL (4.4-10.8)
[2023-05-08 06:14] LABS: Alanine Aminotransferase 43 U/L (7-40); Alkaline Phosphatase 94 U/L (46-116); Anion Gap 2.5 (5-15); Aspartate Aminotransferase 39 U/L (13-40); BUN/Creatinine Ratio 12.7 (10.0-20.0); Blood Urea Nitrogen 15 mg/dL (9-23); Calcium 9.1 mg/dL (8.5-10.1); Carbon Dioxide 31.5 mmol/L (20-30); Chloride 104 mmol/L (98-107); Glucose 180 mg/dL (74-106); Potassium 5.4 mmol/L (3.5-5.1); Sodium 138 mmol/L (136-145)
[2023-05-08 06:15] LABS: Bilirubin, Total 0.2 mg/dL (0.2-1.0); Total Protein 6.7 g/dL (5.7-8.2)
[2023-05-08] MEDS: methylPREDNISolone SOD SUCC 40 MG/ML VL IV SCH ×2 (11:23→22:06)
[2023-05-08] MEDS: METOPROLOL TARTRATE 50 MG TAB PO SCH ×2 (11:24→22:06)
[2023-05-08] MEDS: amLODIPine BESYLATE 5 MG TAB PO SCH (11:24)
[2023-05-08] MEDS ORDERED: cefTRIAXone 1GM/50ML D5W 50 ML IV ONE (13:45)
[2023-05-08 15:06] LABS: Triglycerides 50 mg/dL (< 150)
[2023-05-08 15:07] LABS: COVID19 ANTIGEN SOFIA FIA NEGATIVE (NEGATIVE)
[2023-05-08 15:07] LABS: LDL Cholesterol 129 mg/dL (< 100)
[2023-05-08 15:08] LABS: Cholesterol 189 mg/dL (< 200); HDL Cholesterol 56 mg/dL (40-59)
[2023-05-08] MEDS: LORazepam 0.5 MG TAB PO PRN (17:38)
[2023-05-08] MEDS: ASPirin 81 mg TAB PO SCH (20:07)
[2023-05-08] MEDS ORDERED: hydrALAZINE HCL 20 MG/ML VL IV PRN (21:15)
[2023-05-08] MEDS: ATORVASTATIN 20 MG TAB PO SCH (22:06)
[2023-05-09] VITALS (24 sets, daily range): BP systolic 120–160; BP diastolic 48–83; PULSE 56–90; RESP 16–20; TEMP 98.3–98.7; O2SAT 89–98
[2023-05-09] MEDS: ALBUTEROL SULF 2.5 MG/0.5ML(0.5%) NEB SOLN NEB SCH ×6 (01:38→22:07)
[2023-05-09] MEDS: IPRATROPIUM BROM 0.5 MG/2.5ML INH SOL NEB SCH ×6 (01:38→22:07)
[2023-05-09] MEDS: SODIUM CHLOR 0.9% PF (SALINE LOCK) 10ML VIAL/SYR IV SCH ×3 (06:04→22:00)
[2023-05-09] MEDS: methylPREDNISolone SOD SUCC 40 MG/ML VL IV SCH ×2 (08:53→22:33)
[2023-05-09] MEDS: cefTRIAXone 1GM/50ML D5W 50 ML IV SCH (08:53)
[2023-05-09] MEDS: ASPirin 81 mg TAB PO SCH (08:53)
[2023-05-09] MEDS: METOPROLOL TARTRATE 50 MG TAB PO SCH ×2 (09:02→22:00)
[2023-05-09] MEDS: amLODIPine BESYLATE 5 MG TAB PO SCH (09:02)
[2023-05-09] MEDS: LORazepam 0.5 MG TAB PO PRN ×2 (09:06→20:49)
[2023-05-09] MEDS: AZITHROMYCIN 500MG/ 250ML 250 ML IV SCH (09:44)
[2023-05-09] MEDS: ATORVASTATIN 20 MG TAB PO SCH (22:34)
[2023-05-10] VITALS (19 sets, daily range): BP systolic 118–148; BP diastolic 51–91; PULSE 62–104; RESP 16–20; TEMP 97.5–98.8; O2SAT 87–99
[2023-05-10] MEDS: ALBUTEROL SULF 2.5 MG/0.5ML(0.5%) NEB SOLN NEB SCH ×6 (02:15→22:43)
[2023-05-10] MEDS: IPRATROPIUM BROM 0.5 MG/2.5ML INH SOL NEB SCH ×6 (02:15→22:42)
[2023-05-10] MEDS: SODIUM CHLOR 0.9% PF (SALINE LOCK) 10ML VIAL/SYR IV SCH ×3 (06:19→23:28)
[2023-05-10] MEDS: amLODIPine BESYLATE 5 MG TAB PO SCH (08:40)
[2023-05-10] MEDS: methylPREDNISolone SOD SUCC 40 MG/ML VL IV SCH ×2 (08:40→23:36)
[2023-05-10] MEDS: ASPirin 81 mg TAB PO SCH (08:41)
[2023-05-10] MEDS: METOPROLOL TARTRATE 50 MG TAB PO SCH ×2 (08:41→23:27)
[2023-05-10] MEDS: cefTRIAXone 1GM/50ML D5W 50 ML IV SCH (08:41)
[2023-05-10] MEDS: AZITHROMYCIN 500MG/ 250ML 250 ML IV SCH (10:48)
[2023-05-10] MEDS: LORazepam 0.5 MG TAB PO PRN ×2 (11:01→23:28)
[2023-05-10] MEDS ORDERED: FUROSEMIDE 20 MG/2 ML VIAL IV ONE (12:15)
[2023-05-10] MEDS: ATORVASTATIN 20 MG TAB PO SCH (23:27)
[2023-05-11] VITALS (19 sets, daily range): BP systolic 109–132; BP diastolic 51–69; PULSE 58–106; RESP 16–18; TEMP 98.2–98.8; O2SAT 90–96
[2023-05-11] MEDS: IPRATROPIUM BROM 0.5 MG/2.5ML INH SOL NEB SCH ×6 (02:28→22:23)
[2023-05-11] MEDS: ALBUTEROL SULF 2.5 MG/0.5ML(0.5%) NEB SOLN NEB SCH ×6 (02:28→22:24)
[2023-05-11] MEDS: SODIUM CHLOR 0.9% PF (SALINE LOCK) 10ML VIAL/SYR IV SCH ×3 (05:51→22:20)
[2023-05-11] MEDS: cefTRIAXone 1GM/50ML D5W 50 ML IV SCH (08:45)
[2023-05-11] MEDS: ASPirin 81 mg TAB PO SCH (08:46)
[2023-05-11] MEDS: METOPROLOL TARTRATE 50 MG TAB PO SCH ×2 (08:47→21:48)
[2023-05-11] MEDS: amLODIPine BESYLATE 5 MG TAB PO SCH (08:47)
[2023-05-11] MEDS: FUROSEMIDE 20 MG/2 ML VIAL IV SCH (08:48)
[2023-05-11] MEDS: methylPREDNISolone SOD SUCC 40 MG/ML VL IV SCH ×2 (09:05→22:16)
[2023-05-11] MEDS: AZITHROMYCIN 500MG/ 250ML 250 ML IV SCH (09:06)
[2023-05-11] MEDS: LORazepam 0.5 MG TAB PO PRN ×2 (09:17→18:26)
[2023-05-11] MEDS: ATORVASTATIN 20 MG TAB PO SCH (21:48)
[2023-05-12] VITALS (17 sets, daily range): BP systolic 109–128; BP diastolic 51–63; PULSE 57–79; RESP 16–20; TEMP 97.2–98.5; O2SAT 91–98
[2023-05-12] MEDS: IPRATROPIUM BROM 0.5 MG/2.5ML INH SOL NEB SCH ×4 (02:09→22:36)
[2023-05-12] MEDS: ALBUTEROL SULF 2.5 MG/0.5ML(0.5%) NEB SOLN NEB SCH ×4 (02:09→22:36)
[2023-05-12] MEDS: SODIUM CHLOR 0.9% PF (SALINE LOCK) 10ML VIAL/SYR IV SCH ×3 (05:51→21:13)
[2023-05-12] MEDS: cefTRIAXone 1GM/50ML D5W 50 ML IV SCH (08:50)
[2023-05-12] MEDS: amLODIPine BESYLATE 5 MG TAB PO SCH (08:53)
[2023-05-12] MEDS: METOPROLOL TARTRATE 50 MG TAB PO SCH ×2 (08:54→21:15)
[2023-05-12] MEDS: methylPREDNISolone SOD SUCC 40 MG/ML VL IV SCH ×2 (08:55→21:13)
[2023-05-12] MEDS: ASPirin 81 mg TAB PO SCH (08:55)
[2023-05-12] MEDS: AZITHROMYCIN 250 MG TAB PO SCH (08:56)
[2023-05-12] MEDS: FUROSEMIDE 20 MG/2 ML VIAL IV SCH (08:56)
[2023-05-12 09:00] LABS: Basophils # (auto) 0 10 ^3/uL (0-0.2); Basophils % (auto) 0.1 % (0.0-2.0); Eosinophils # (auto) 0 10 ^3/uL (0-0.8); Hematocrit 45.8 % (36.0-46.0); Lymphocytes # (auto) 0.5 10 ^3/uL (0.4-5.4); Lymphocytes % (auto) 4.5 % (10.0-50.0); Mean Corpuscular Hemoglobin 30.4 pg (28.0-32.0); Mean Corpuscular Hgb Conc. 32.7 g/dL (32.0-36.0); Mean Corpuscular Volume 93.2 fL (80.0-100.0); Monocytes # (auto) 0.4 10 ^3/uL (0-1.3); Monocytes % (auto) 3.8 % (0.0-12.0); Neutrophils # (auto) 10.3 10 ^3/uL (1.6-8.6); Neutrophils % (auto) 91.6 % (37.0-80.0); Nucleated Red Blood Cells % 0.1 %; Red Blood Cells 4.92 10^6/uL (4.0-5.20); Red Cell Distribution Width 13.7 % (11.8-14.3); White Blood Cell 11.2 10^3/uL (4.4-10.8)
[2023-05-12] MEDS: LORazepam 0.5 MG TAB PO PRN ×2 (09:04→21:14)
[2023-05-12 09:14] LABS: Chloride 99 mmol/L (98-107); Sodium 138 mmol/L (136-145)
[2023-05-12 09:20] LABS: BUN/Creatinine Ratio 25.8 (10.0-20.0); Blood Urea Nitrogen 33 mg/dL (9-23); Glucose 163 mg/dL (74-106)
[2023-05-12] MEDS ORDERED: NICOTINE 21MG/24 HR TOPICAL PATCH TD ONE (10:15)
[2023-05-12] MEDS: ATORVASTATIN 20 MG TAB PO SCH (21:14)
[2023-05-13] VITALS (9 sets, daily range): BP systolic 124–129; BP diastolic 60–70; PULSE 60–76; RESP 17–18; TEMP 98–98.4; O2SAT 90–98
[2023-05-13] MEDS: IPRATROPIUM BROM 0.5 MG/2.5ML INH SOL NEB SCH ×3 (02:09→10:10)
[2023-05-13] MEDS: ALBUTEROL SULF 2.5 MG/0.5ML(0.5%) NEB SOLN NEB SCH ×3 (02:09→10:11)
[2023-05-13] MEDS: SODIUM CHLOR 0.9% PF (SALINE LOCK) 10ML VIAL/SYR IV SCH (05:30)
[2023-05-13] MEDS: cefTRIAXone 1GM/50ML D5W 50 ML IV SCH (08:22)
[2023-05-13] MEDS ORDERED: NIC21P TOP (09:20)
[2023-05-13] MEDS ORDERED: AZIT500T66 PO (09:20)
[2023-05-13] MEDS ORDERED: FURO1TAB31 PO (09:20)
[2023-05-13] MEDS: methylPREDNISolone SOD SUCC 40 MG/ML VL IV SCH (10:00)
[2023-05-13] MEDS: METOPROLOL TARTRATE 50 MG TAB PO SCH (10:00)
[2023-05-13] MEDS ORDERED: NICOTINE 21MG/24 HR TOPICAL PATCH TD SCH (10:00)
[2023-05-13] MEDS: amLODIPine BESYLATE 5 MG TAB PO SCH (10:01)
[2023-05-13] MEDS: ASPirin 81 mg TAB PO SCH (10:01)
[2023-05-13] MEDS: AZITHROMYCIN 250 MG TAB PO SCH (10:01)
[2023-05-13] MEDS: LORazepam 0.5 MG TAB PO PRN (10:02)
[2023-05-13] MEDS: FUROSEMIDE 20 MG/2 ML VIAL IV SCH (10:03)
== END 2023-05-13 13:04 | disposition home health service (06) | DRG 177 ==
LOC: ER 15:22 → TELE 21:35 → TELE-CENTR 05-08 22:34
PROVIDERS: ADMIT Internal Medicine; ATTEND Family Medicine
DX: J15.6 Pneumonia due to other Gram-negative bacteria (principal); I50.33 Acute on chronic diastolic (congestive) heart failure; J96.01 Acute respiratory failure with hypoxia; J44.1 Chronic obstructive pulmonary disease with (acute) exacerbation; N39.0 Urinary tract infection, site not specified; J44.0 Chronic obstructive pulmonary disease with (acute) lower respiratory infection; J15.9 Unspecified bacterial pneumonia; F17.200 Nicotine dependence, unspecified, uncomplicated; Z20.822 Contact with and (suspected) exposure to COVID-19; E78.5 Hyperlipidemia, unspecified; F41.9 Anxiety disorder, unspecified; I11.0 Hypertensive heart disease with heart failure; K75.9 Inflammatory liver disease, unspecified; Z95.5 Presence of coronary angioplasty implant and graft; Z87.442 Personal history of urinary calculi; Z80.0 Family history of malignant neoplasm of digestive organs; Z91.148 Patient's other noncompliance with medication regimen for other reason
CPT/HCPCS: 36415; 36600; 71045; 80048; 80053; 80061; 81001; 82805; 83036; 83605; 83735; 83880; 84443; 84484; 85025; 85610; 85730; 87040; 87070; 87077; 87086; 87205; 87426; 93005; 93306; 94010; 94640; 96365; 96375; 97163; C9113; G0378; J0696; J2405

== ENCOUNTER 2023-06-28 18:38 | Inpatient (IN) | payer MEDICARE, MEDICAID ==
[~2023-06-28] VITALS: Ht 167.6 cm; Wt 74.1 kg
[~2023-06-28 18:38] MED LIST changes: -AMLO1TAB22 PO; +AZIT500T66 PO; -BECL80AE11 IN; +FURO1TAB31 PO; -METO-158 PO; +NIC21P TOP
[2023-06-28 19:25] LABS: Basophils # (auto) 0.1 10 ^3/uL (0-0.2); Eosinophils # (auto) 0.2 10 ^3/uL (0-0.8); Eosinophils % (auto) 2.3 % (0.0-7.0); Hematocrit 49.4 % (36.0-46.0); Hemoglobin 15.9 g/dL (12.2-16.2); Lymphocytes # (auto) 1.8 10 ^3/uL (0.4-5.4); Lymphocytes % (auto) 21.5 % (10.0-50.0); Mean Corpuscular Hemoglobin 30.6 pg (28.0-32.0); Mean Corpuscular Hgb Conc. 32.2 g/dL (32.0-36.0); Mean Corpuscular Volume 94.8 fL (80.0-100.0); Monocytes # (auto) 0.4 10 ^3/uL (0-1.3); Neutrophils # (auto) 5.8 10 ^3/uL (1.6-8.6); Neutrophils % (auto) 70.2 % (37.0-80.0); Nucleated Red Blood Cells % 0.2 %; Red Blood Cells 5.21 10^6/uL (4.0-5.20); Red Cell Distribution Width 13.9 % (11.8-14.3); White Blood Cell 8.3 10^3/uL (4.4-10.8)
[2023-06-28 19:48] LABS: Alanine Aminotransferase 21 U/L (7-40); Albumin 4.3 g/dL (3.2-4.8); Alkaline Phosphatase 116 U/L (46-116); Anion Gap 4 (5-15); Aspartate Aminotransferase 15 U/L (13-40); Bilirubin, Total 0.3 mg/dL (0.2-1.0); Blood Urea Nitrogen 13 mg/dL (9-23); Calcium 9.5 mg/dL (8.7-10.4); Carbon Dioxide 34 mmol/L (20-30); Chloride 103 mmol/L (98-107); Glucose 152 mg/dL (74-106); Potassium 3.7 mmol/L (3.5-5.1); Sodium 141 mmol/L (136-145); Total Protein 7.1 g/dL (5.7-8.2)
[2023-06-28] MEDS ORDERED: DexAMETHasone SOD PHOS 10MG/1ML VIAL INJ IV ONE (21:00)
[2023-06-28] MEDS ORDERED: ALBUTEROL SULF 2.5 MG/0.5ML(0.5%) NEB SOLN HHN ONE (21:00)
[2023-06-28] MEDS ORDERED: IPRATROPIUM BROM 0.5 MG/2.5ML INH SOL HHN ONE (21:00)
[2023-06-28] MEDS ORDERED: ALBUTEROL MEDNEB 2.5 mg/3ml NEB ONE (21:08)
[2023-06-28 22:08] LABS: Base Excess 3.7 mmol/L (-2.0-2.0)
[2023-06-28 23:11] VITALS: PULSE 101; RESP 20; O2SAT 91
[2023-06-29] VITALS (9 sets, daily range): BP systolic 136–166; BP diastolic 68; PULSE 66–99; RESP 16–20; TEMP 98.4; O2SAT 90–98
[2023-06-29] MEDS ORDERED: ALBUTEROL SULF 2.5 MG/0.5ML(0.5%) NEB SOLN NEB PRN (00:15)
[2023-06-29] MEDS ORDERED: ACETAMINOPHEN 325 MG TAB PO PRN (00:15)
[2023-06-29] MEDS ORDERED: FUROSEMIDE 20 MG/2 ML VIAL IV ONE (00:15)
[2023-06-29] MEDS ORDERED: ONDANSETRON HCL 4 MG/2 ML VIAL IV PRN (00:15)
[2023-06-29] MEDS ORDERED: NITROGLYCERIN 0.4 MG SL TAB SL PRN (00:15)
[2023-06-29] MEDS ORDERED: MORPHINE SULFATE INJ 2 MG/ml SYRG IV PRN (00:15)
[2023-06-29] MEDS ORDERED: hydrALAZINE HCL 20 MG/ML VL IV PRN (00:15)
[2023-06-29 00:46] LABS: Urine Bacteria FEW /hpf (None Seen); Urine Blood Negative /uL (Negative); Urine Clarity Clear (Clear); Urine Color Yellow (Yellow); Urine Protein, UAD 2+ (Negative); Urine Specific Gravity 1.019 (1.001-1.035); Urine Urobilinogen Normal (Negative); Urine WBC 4 /hpf (0 - 5)
[2023-06-29 01:17] LABS: COVID19 ANTIGEN SOFIA FIA NEGATIVE (NEGATIVE)
[2023-06-29] MEDS ORDERED: LORazepam 2MG/ML-1ML VIAL IV ONE (09:15)
[2023-06-29] MEDS ORDERED: METOPROLOL TARTRATE 50 MG TAB PO SCH ×2 (10:00→22:00)
[2023-06-29] MEDS: FUROSEMIDE 20 MG/2 ML VIAL IV SCH (10:01)
[2023-06-29] MEDS: ENOXAPARIN SOD 40 MG/0.4 ML SYRINGE SC SCH (10:01)
[2023-06-29] MEDS: ASPirin 81 mg TAB PO SCH (10:01)
[2023-06-29] MEDS: amLODIPine BESYLATE 5 MG TAB PO SCH (10:02)
[2023-06-29] MEDS ORDERED: methylPREDNISolone SOD SUCC 40 MG/ML VL IV ONE (13:00)
[2023-06-29] MEDS ORDERED: NICOTINE 21MG/24 HR TOPICAL PATCH TD ONE (13:00)
[2023-06-29] MEDS ORDERED: LISINOPRIL 10 MG TAB PO ONE ×2 (13:00→14:45)
[2023-06-29] MEDS ORDERED: levoFLOXacin 500MG 100 ML IV ONE (13:00)
[2023-06-29] MEDS: LORazepam 0.5 MG TAB PO PRN (14:48)
[2023-06-29] MEDS ORDERED: ALBUTEROL MEDNEB 2.5 mg/3ml NEB ONE ×2 (18:00→22:31)
[2023-06-29] MEDS: IPRATROPIUM BROM 0.5 MG/2.5ML INH SOL NEB SCH ×2 (18:03→22:36)
[2023-06-29] MEDS: ALBUTEROL SULF 2.5 MG/0.5ML(0.5%) NEB SOLN NEB SCH ×2 (18:03→22:36)
[2023-06-29] MEDS ORDERED: NITR0.2D5 TOP (20:57)
[2023-06-29] MEDS ORDERED: IPRIH PO (20:57)
[2023-06-29] MEDS ORDERED: ALBU0.084 NEB (20:57)
[2023-06-29] MEDS ORDERED: ATORVASTATIN 20 MG TAB PO SCH (22:00)
[2023-06-29] MEDS: ATORVASTATIN 20 MG TAB PO SCH (23:28)
[2023-06-29] MEDS: AZITHROMYCIN 250 MG TAB PO SCH (23:28)
[2023-06-29] MEDS: METOPROLOL TARTRATE 25 MG TAB PO SCH (23:29)
[2023-06-29] MEDS: methylPREDNISolone SOD SUCC 40 MG/ML VL IV SCH (23:37)
[2023-06-30] VITALS (14 sets, daily range): BP systolic 97–154; BP diastolic 54–79; PULSE 49–88; RESP 16–20; TEMP 97.7–98.2; O2SAT 92–98
[2023-06-30] MEDS ORDERED: ALBUTEROL MEDNEB 2.5 mg/3ml NEB ONE ×3 (06:28→18:20)
[2023-06-30 07:13] LABS: Basophils # (auto) 0 10 ^3/uL (0-0.2); Basophils % (auto) 0.1 % (0.0-2.0); Eosinophils # (auto) 0 10 ^3/uL (0-0.8); Hematocrit 45.5 % (36.0-46.0); Hemoglobin 14.6 g/dL (12.2-16.2); Lymphocytes # (auto) 0.6 10 ^3/uL (0.4-5.4); Lymphocytes % (auto) 5.3 % (10.0-50.0); Mean Corpuscular Hemoglobin 30.4 pg (28.0-32.0); Mean Corpuscular Volume 94.7 fL (80.0-100.0); Monocytes # (auto) 0.3 10 ^3/uL (0-1.3); Monocytes % (auto) 2.3 % (0.0-12.0); Neutrophils % (auto) 92.3 % (37.0-80.0); Red Cell Distribution Width 13.6 % (11.8-14.3); White Blood Cell 11.9 10^3/uL (4.4-10.8)
[2023-06-30 07:14] LABS: Alanine Aminotransferase 19 U/L (7-40); Albumin 3.8 g/dL (3.2-4.8); Alkaline Phosphatase 103 U/L (46-116); Anion Gap 3 (5-15); Aspartate Aminotransferase 10 U/L (13-40); BUN/Creatinine Ratio 17.7 (10.0-20.0); Blood Urea Nitrogen 20 mg/dL (9-23); Calcium 9.5 mg/dL (8.7-10.4); Carbon Dioxide 32 mmol/L (20-30); Chloride 102 mmol/L (98-107); Glucose 182 mg/dL (74-106); Sodium 137 mmol/L (136-145)
[2023-06-30 07:15] LABS: Bilirubin, Total 0.2 mg/dL (0.2-1.0); Total Protein 6.4 g/dL (5.7-8.2)
[2023-06-30] MEDS: IPRATROPIUM BROM 0.5 MG/2.5ML INH SOL NEB SCH ×3 (07:45→18:39)
[2023-06-30] MEDS: ALBUTEROL SULF 2.5 MG/0.5ML(0.5%) NEB SOLN NEB SCH ×3 (07:45→18:39)
[2023-06-30] MEDS: ENOXAPARIN SOD 40 MG/0.4 ML SYRINGE SC SCH (10:00)
[2023-06-30] MEDS ORDERED: levoFLOXacin 500MG 100 ML IV SCH (10:00)
[2023-06-30] MEDS: methylPREDNISolone SOD SUCC 40 MG/ML VL IV SCH (10:20)
[2023-06-30] MEDS: AZITHROMYCIN 250 MG TAB PO SCH (10:21)
[2023-06-30] MEDS: FUROSEMIDE 20 MG/2 ML VIAL IV SCH (10:21)
[2023-06-30] MEDS: ASPirin 81 mg TAB PO SCH (10:21)
[2023-06-30] MEDS: amLODIPine BESYLATE 5 MG TAB PO SCH (10:22)
[2023-06-30] MEDS: LISINOPRIL 10 MG TAB PO SCH (10:22)
[2023-06-30] MEDS: METOPROLOL TARTRATE 25 MG TAB PO SCH ×2 (10:23→22:00)
[2023-06-30] MEDS: NICOTINE 21MG/24 HR TOPICAL PATCH TD SCH (10:24)
[2023-06-30] MEDS: LORazepam 0.5 MG TAB PO PRN ×2 (10:38→23:02)
[2023-06-30] MEDS: ATORVASTATIN 20 MG TAB PO SCH (22:50)
[2023-07-01] VITALS (9 sets, daily range): BP systolic 109–141; BP diastolic 60–62; PULSE 71–86; RESP 16–18; TEMP 98–98.3; O2SAT 90–97
[2023-07-01] MEDS ORDERED: ALBUTEROL MEDNEB 2.5 mg/3ml NEB ONE ×2 (06:26→11:40)
[2023-07-01 06:48] LABS: Chloride 104 mmol/L (98-107); Potassium 4.2 mmol/L (3.5-5.1); Sodium 140 mmol/L (136-145)
[2023-07-01 06:49] LABS: Anion Gap 2 (5-15); Calcium 9.1 mg/dL (8.7-10.4); Carbon Dioxide 34 mmol/L (20-30)
[2023-07-01 06:54] LABS: BUN/Creatinine Ratio 18.6 (10.0-20.0); Blood Urea Nitrogen 22 mg/dL (9-23); Glucose 109 mg/dL (74-106)
[2023-07-01] MEDS: ALBUTEROL SULF 2.5 MG/0.5ML(0.5%) NEB SOLN NEB SCH ×2 (07:39→12:08)
[2023-07-01] MEDS: IPRATROPIUM BROM 0.5 MG/2.5ML INH SOL NEB SCH ×2 (07:40→12:09)
[2023-07-01] MEDS: amLODIPine BESYLATE 5 MG TAB PO SCH (09:29)
[2023-07-01] MEDS: LISINOPRIL 10 MG TAB PO SCH (09:29)
[2023-07-01] MEDS: ASPirin 81 mg TAB PO SCH (09:30)
[2023-07-01] MEDS: FUROSEMIDE 20 MG/2 ML VIAL IV SCH (09:30)
[2023-07-01] MEDS: AZITHROMYCIN 250 MG TAB PO SCH (09:30)
[2023-07-01] MEDS: METOPROLOL TARTRATE 25 MG TAB PO SCH (09:30)
[2023-07-01] MEDS: NICOTINE 21MG/24 HR TOPICAL PATCH TD SCH (09:31)
[2023-07-01] MEDS: ENOXAPARIN SOD 40 MG/0.4 ML SYRINGE SC SCH (09:32)
[2023-07-01] MEDS: LORazepam 0.5 MG TAB PO PRN ×2 (09:35→16:24)
[2023-07-01] MEDS ORDERED: predniSONE 20 MG TAB PO SCH (10:00)
[2023-07-01] MEDS ORDERED: AZIT-43 PO (13:19)
[2023-07-01] MEDS ORDERED: AML5T PO (13:19)
[2023-07-01] MEDS ORDERED: PRED20TA2 PO (13:19)
[2023-07-01] MEDS ORDERED: METO-6 PO (13:19)
[2023-07-01] MEDS ORDERED: LISI10TA34 PO (13:19)
== END 2023-07-01 17:00 | disposition home or self-care (01) | DRG 280 ==
LOC: ER 18:38 → TELE 06-29 00:14 → TELE-WESTW 06-29 18:57
PROVIDERS: ADMIT Nurse Practitioner; ATTEND Internal Medicine
DX: I11.0 Hypertensive heart disease with heart failure (principal); I21.A1 Myocardial infarction type 2; I50.33 Acute on chronic diastolic (congestive) heart failure; J96.21 Acute and chronic respiratory failure with hypoxia; J18.9 Pneumonia, unspecified organism; J44.0 Chronic obstructive pulmonary disease with (acute) lower respiratory infection; J44.1 Chronic obstructive pulmonary disease with (acute) exacerbation; I25.10 Atherosclerotic heart disease of native coronary artery without angina pectoris; Z20.822 Contact with and (suspected) exposure to COVID-19; I16.0 Hypertensive urgency; F17.210 Nicotine dependence, cigarettes, uncomplicated; F41.9 Anxiety disorder, unspecified; Z79.899 Other long term (current) drug therapy; Z80.0 Family history of malignant neoplasm of digestive organs; Z87.442 Personal history of urinary calculi; Z95.5 Presence of coronary angioplasty implant and graft; Z98.62 Peripheral vascular angioplasty status; Z90.49 Acquired absence of other specified parts of digestive tract
CPT/HCPCS: 36415; 36600; 71046; 80048; 80053; 81001; 82805; 83605; 83735; 83880; 84484; 85025; 87040; 87426; 93005; 93925; 94640; 96374; 97110; 97116; 97163; 97530; G0378; J1100; J1956

== ENCOUNTER 2024-01-25 12:38 | Observation (INO) | payer OTHER, MEDICAID ==
[~2024-01-25] VITALS: Ht 167.6 cm; Wt 73.0 kg
[~2024-01-25 12:38] MED LIST changes: +ALBU0.084 NEB; +AML5T PO; +AZIT-43 PO; -AZIT500T66 PO; +IPRIH PO; +LISI10TA34 PO; +METO-6 PO; -NIC21P TOP; +NITR0.2D5 TOP; +PRED20TA2 PO
[2024-01-25 14:14] LABS: Basophils # (auto) 0 10 ^3/uL (0-0.2); Basophils % (auto) 0.3 % (0.0-2.0); Eosinophils # (auto) 0.1 10 ^3/uL (0-0.8); Eosinophils % (auto) 0.4 % (0.0-7.0); Hematocrit 40.3 % (36.0-46.0); Hemoglobin 12.8 g/dL (12.2-16.2); Lymphocytes # (auto) 0.7 10 ^3/uL (0.4-5.4); Mean Corpuscular Hemoglobin 28.9 pg (28.0-32.0); Mean Corpuscular Hgb Conc. 31.7 g/dL (32.0-36.0); Mean Corpuscular Volume 91.1 fL (80.0-100.0); Monocytes # (auto) 0.7 10 ^3/uL (0-1.3); Monocytes % (auto) 4.2 % (0.0-12.0); Neutrophils % (auto) 91.1 % (37.0-80.0); Red Blood Cells 4.42 10^6/uL (4.0-5.20); Red Cell Distribution Width 15.4 % (11.8-14.3); White Blood Cell 17.5 10^3/uL (4.4-10.8)
[2024-01-25 14:30] LABS: Alanine Aminotransferase 17 U/L (7-40); Albumin 4.2 g/dL (3.2-4.8); Alkaline Phosphatase 110 U/L (46-116); Anion Gap 2 (5-15); Aspartate Aminotransferase 12 U/L (13-40); Bilirubin, Total 0.2 mg/dL (0.2-1.0); Blood Urea Nitrogen 21 mg/dL (9-23); Carbon Dioxide 37 mmol/L (20-30); Chloride 102 mmol/L (98-107); Glucose 101 mg/dL (74-106); Sodium 141 mmol/L (136-145)
[2024-01-25 14:31] LABS: Total Protein 6.6 g/dL (5.7-8.2)
[2024-01-25] MEDS ORDERED: ALBUMIN 25% 100 ML IV ONE (16:00)
[2024-01-25] MEDS: IPRATROPIUM BROM 0.5 MG/2.5ML INH SOL NEB ONE (16:20)
[2024-01-25 16:45] VITALS: PULSE 105; RESP 28; O2SAT 92
[2024-01-25] MEDS: cefTRIAXone 1GM/50ML D5W 50 ML IV ONE (17:10)
[2024-01-25] MEDS: methylPREDNISolone SOD SUCC 125 MG/2 ML VL IV ONE (17:10)
[2024-01-25 18:25] LABS: Urine Amorphous Crystal FEW /hpf (None Seen); Urine Bacteria FEW /hpf (None Seen); Urine Blood Negative /uL (Negative); Urine Clarity Clear (Clear); Urine Color Light-Yellow (Yellow); Urine Mucus FEW (None Seen); Urine Protein, UAD Negative (Negative); Urine Urobilinogen Normal (Negative); Urine WBC 11 /hpf (0 - 5); Urine pH 5.5 (5.0-9.0)
[2024-01-25 18:27] LABS: Base Excess 7.7 mmol/L (-2.0-2.0)
[2024-01-25] MEDS: AZITHROMYCIN 500MG/ 250ML 250 ML IV ONE (18:28)
[2024-01-25 18:53] VITALS: BP 133/69; PULSE 105; RESP 18; TEMP 97.8; O2SAT 88
[2024-01-25] MEDS ORDERED: IPRATROPIUM BROM 0.5 MG/2.5ML INH SOL NEB SCH (19:00)
[2024-01-25] MEDS ORDERED: ALBUTEROL SULF 2.5 MG/0.5ML(0.5%) NEB SOLN NEB SCH (19:00)
[2024-01-25 19:05] VITALS: PULSE 102; RESP 24; O2SAT 89
[2024-01-25] MEDS: IPRATROPIUM BROM 0.5 MG/2.5ML INH SOL NEB PRN (19:05)
[2024-01-25] MEDS: ALBUTEROL SULF 2.5 MG/0.5ML(0.5%) NEB SOLN NEB PRN (19:06)
[2024-01-25 19:12] VITALS: PULSE 105; RESP 22; O2SAT 90
[2024-01-25] MEDS: ACETAMINOPHEN 325 MG TAB PO PRN (19:14)
[2024-01-25 19:41] LABS: COVID19 ANTIGEN SOFIA FIA NEGATIVE (NEGATIVE); Rapid Influenza A Negative (Negative); Rapid Influenza B Negative (Negative)
[2024-01-26] VITALS (8 sets, daily range): BP systolic 135; BP diastolic 54; PULSE 79–116; RESP 18–23; TEMP 98.2; O2SAT 87–100
[2024-01-26] MEDS ORDERED: PRED20TA2 PO (00:03)
[2024-01-26] MEDS ORDERED: IPRA0.00 IN (00:03)
[2024-01-26] MEDS ORDERED: AUG875T PO (00:04)
[2024-01-26] MEDS ORDERED: AZITTAB PO (00:05)
[2024-01-26 06:07] LABS: Hematocrit 38.9 % (36.0-46.0); Hemoglobin 12.5 g/dL (12.2-16.2); Mean Corpuscular Hemoglobin 28.9 pg (28.0-32.0); Mean Corpuscular Volume 90.3 fL (80.0-100.0); Red Blood Cells 4.31 10^6/uL (4.0-5.20); Red Cell Distribution Width 15.5 % (11.8-14.3); White Blood Cell 13.7 10^3/uL (4.4-10.8)
[2024-01-26 06:09] LABS: Basophils % (manual) 0 (0.0-2.0); Blast Cells 0; Eosinophils % (manual) 0 (0-7); Metamyelocytes % 0; Myelocytes % 0; Promyelocytes % 0; Reactive Lymphocytes 0
[2024-01-26 06:25] LABS: Alanine Aminotransferase 14 U/L (7-40); Alkaline Phosphatase 102 U/L (46-116); Anion Gap 2 (5-15); Aspartate Aminotransferase 10 U/L (13-40); BUN/Creatinine Ratio 19.6 (10.0-20.0); Bilirubin, Total 0.2 mg/dL (0.2-1.0); Blood Urea Nitrogen 20 mg/dL (9-23); Calcium 9.9 mg/dL (8.5-10.1); Carbon Dioxide 35 mmol/L (20-30); Chloride 103 mmol/L (98-107); Glucose 186 mg/dL (74-106); Potassium 4.4 mmol/L (3.5-5.1); Sodium 140 mmol/L (136-145); Total Protein 6.8 g/dL (5.7-8.2)
[2024-01-26 06:55] LABS: Band Neutrophils % (manual) 3; Lymphocytes % (manual) 2 (10.0-50.0); Monocytes % (manual) 3 (0-12); Platelet Estimate Adequate
[2024-01-26] MEDS: methylPREDNISolone SOD SUCC 125 MG/2 ML VL IV ONE ×2 (09:00→10:55)
[2024-01-26] MEDS: AZITHROMYCIN 500MG/ 250ML 250 ML IV ONE (09:45)
[2024-01-26] MEDS: cefTRIAXone 1GM/50ML D5W 50 ML IV ONE (10:32)
[2024-01-26] MEDS: FUROSEMIDE 40 MG TAB PO SCH (11:28)
[2024-01-26] MEDS: METOPROLOL SUCCINATE XL 50 MG TAB PO SCH (11:28)
[2024-01-26] MEDS: ENOXAPARIN SOD 30 MG/0.3 ML SYRINGE SC SCH (11:29)
[2024-01-26] MEDS: amLODIPine BESYLATE 5 MG TAB PO SCH (11:29)
[2024-01-27] MEDS ORDERED: ENOXAPARIN SOD 40 MG/0.4 ML SYRINGE SC SCH (10:00)
== END 2024-01-26 15:26 | disposition home or self-care (01) ==
LOC: ER 12:38 → TELE 18:43
PROVIDERS: ADMIT Student in an Organized Health Care Education/Training Program; ATTEND Student in an Organized Health Care Education/Training Program
DX: J44.1 Chronic obstructive pulmonary disease with (acute) exacerbation (principal); Z20.822 Contact with and (suspected) exposure to COVID-19; J18.9 Pneumonia, unspecified organism; J96.11 Chronic respiratory failure with hypoxia; D72.829 Elevated white blood cell count, unspecified; I10 Essential (primary) hypertension; F17.210 Nicotine dependence, cigarettes, uncomplicated; Z79.899 Other long term (current) drug therapy
CPT/HCPCS: 36415; 36600; 71045; 80053; 81001; 82805; 83735; 83880; 84484; 85007; 85025; 85027; 87426; 87804; 93005; 94640; 96365; 96366; 96368; 96372; 96375; 96376; 99285; G0378; J0456; J0696; J1650; J2919; J7644